=== PATIENT | female | born 1980 ===

== ENCOUNTER 2020-11-26 17:40 | Observation (INO) | payer SELFPAY ==
[~2020-11-26] VITALS: Ht 165.1 cm; Wt 77.1 kg
[2020-11-26] MEDS ORDERED: LACTATED RINGER'S 1,000 ML IV SCH (19:15)
[2020-11-26] MEDS ORDERED: LACTATED RINGER'S 1,000 ML IV ONE (19:15)
[2020-11-26] MEDS ORDERED: TERBUTALINE SULFATE 1 MG/ML 1ML VIAL SC SCH (19:15)
[2020-11-26] MEDS ORDERED: BETAMETHASONE ACET (30mg/5ml) 5ml Vial 6mg/ml IM SCH (19:30)
== END 2020-11-26 20:33 | disposition home or self-care (01) ==
LOC: EDBD 17:40 → LDRP 17:40
PROVIDERS: ADMIT Specialist; ATTEND Specialist
DX: O42.913 Preterm premature rupture of membranes, unspecified as to length of time between rupture and onset of labor, third trimester (principal); O34.219 Maternal care for unspecified type scar from previous cesarean delivery; Z87.891 Personal history of nicotine dependence; Z3A.36 36 weeks gestation of pregnancy
CPT/HCPCS: 59025; 76805; 81002; 84112; 96360; 96372; G0378; J0702; J3105; Q0114